=== PATIENT | female | born 1975 | race Caucasian/White ===

== ENCOUNTER 2016-06-21 23:50 | Emergency (ER) | payer OTHER ==
[~2016-06-21 23:50] MED LIST: IMITREX; NO MEDICATIONS; PREDNISONE PO; PROTONIX PO
== END 2016-06-22 01:36 | disposition home or self-care (01) ==
LOC: SED 23:50
DX: G43.909 Migraine, unspecified, not intractable, without status migrainosus (principal); K21.9 Gastro-esophageal reflux disease without esophagitis; F17.200 Nicotine dependence, unspecified, uncomplicated; Z90.710 Acquired absence of both cervix and uterus
CPT/HCPCS: 96361; 96374; 96375; 99284; J0780; J1100; J1200; J1885